=== PATIENT | male | born 1980 | race Caucasian/White ===

== ENCOUNTER 2022-11-09 16:05 | Emergency (ER) | payer MEDICAID ==
[~2022-11-09] VITALS: Ht 185.4 cm; Wt 83.5 kg
[2022-11-09] MEDS ORDERED: TDAP DIPH,PERTUSS,TET VAC/PF 0.5 ML DISP.SYRIN IM ONE ×2 (16:45→16:47)
[2022-11-09] MEDS ORDERED: AMOXICILLIN-CLAVUL 875-125MG TABLET PO ONE (16:45)
[2022-11-09] MEDS ORDERED: AMOX-430 PO (16:45)
[2022-11-09] MEDS ORDERED: AMOXICILLIN-CLAVUL 875-125MG TABLET ONE (16:47)
--- NOTE | 2022-11-09 17:07 | NUR ---
wound care performed on dog bite hydrogen peroxide iodine sterile dressing. pt tolerated fairly well pt being discharged home
--- NOTE | 2022-11-09 17:12 | NUR ---
Patient discharged to home in stable condition. Written and verbal after care instructions given. Patient verbalizes understanding of instructions. Stressed follow up or return to ER for worsening s/s.
== END 2022-11-09 17:13 | disposition home or self-care (01) ==
LOC: ER 16:09
DX: S71.152A Open bite, left thigh, initial encounter (principal); W54.0XXA Bitten by dog, initial encounter; Y92.89 Other specified places as the place of occurrence of the external cause
CPT/HCPCS: 90715; A4663

== ENCOUNTER 2024-01-06 18:15 | Emergency (ER) | payer MEDICAID, OTHER ==
[~2024-01-06] VITALS: Ht 188 cm; Wt 80.3 kg
[~2024-01-06 18:15] MED LIST: AMOX-430 PO
[2024-01-06 19:16] VITALS: BP 132/85; TEMP 98.6; O2SAT 100
== END 2024-01-06 19:16 | disposition home or self-care (01) ==
LOC: ER 18:18
DX: H11.32 Conjunctival hemorrhage, left eye (principal); Z79.899 Other long term (current) drug therapy
CPT/HCPCS: A4606; A4663